=== PATIENT | male | born 1980 | race Caucasian/White ===

== ENCOUNTER 2019-01-02 11:41 | Outpatient (CLI) | payer SELFPAY ==
--- NOTE | 2019-01-02 11:12 | DI.RAD_ITS ---
SYMPTOMS/DIAGNOSIS: F/U DISLOCATION LEFT ELBOW: Three views were obtained. No previous films available for comparison. There is an elbow joint effusion or hemarthrosis. There is a comminuted fracture of the medial epicondyle of the humerus with moderate displacement. No additional fracture seen.
== END 2019-01-02 12:01 ==
PROVIDERS: Visit Provider Student in an Organized Health Care Education/Training Program
DX: S42.442D Displaced fracture (avulsion) of medial epicondyle of left humerus, subsequent encounter for fracture with routine healing (principal); M25.422 Effusion, left elbow
CPT/HCPCS: 73080